=== PATIENT | female | born 1980 | race Caucasian/White ===

== ENCOUNTER → 2018-07-21 13:02 | Outpatient (CLI) | payer BC, SELFPAY ==
--- NOTE | 2018-07-21 13:06 | CT_ITS ---
CT pelvis w con INDICATION: Previous bladder surgery ITS.REASON: history of vaginal tear repair, patient has open wound bikini area of left groin ORDERING PHYSICIAN: Don Rowland MD PATIENT AGE: 37 years COMPARISON: Ct scan abd and pelvis 05-13-2018 TECHNIQUE: Axial images obtained with sagittal and coronal reformats. All CT scans at the facility use one or more dose reduction, viz: automated exposure control, ma/kV adjustment per patient size (including targeted exams where dose is matched to indication, i.e. head), or iterative reconstruction technique. FINDINGS: Scans were obtained from the iliac crest to the bladder floor. Initially scans were performed CT seconds after beginning of IV contrast and then delayed scanning was performed. Oral contrast was given previously area contrast filled loops of mid and distal small bowel appear normal. The initial scan showed the bladder be fairly well filled with urine and appears grossly normal. The second series of scan showed contrast opacifying the urinary bladder with no evidence of leakage or significant bladder contour irregularity. There is noted be large amount stool in the lower descending and sigmoid colon and rectum. The patient is post hysterectomy. There is no free fluid in the pelvis. IMPRESSION: Findings as described, no significant postsurgical change of the urinary bladder, no evidence of vesicovaginal fistula
== END ==
PROVIDERS: PCP Emergency Medicine; Visit Provider Surgery
DX: S31.109A Unspecified open wound of abdominal wall, unspecified quadrant without penetration into peritoneal cavity, initial encounter (principal)
CPT/HCPCS: 72193; Q9967

== ENCOUNTER → 2018-07-28 15:20 | Outpatient (CLI) | payer BC, SELFPAY ==
[2018-07-28 15:46] LABS: Basophils % 0.4 % (0.1-2.0); Eosinophils # 0.2 K/mm3 (0.0-0.4); Eosinophils % 2.6 % (0.1-12.0); Hematocrit 41.9 % (37.0-47.0); Hemoglobin 13.6 g/dL (12.2-16.2); Lymphocytes # 2.4 K/mm3 (0.7-4.5); Lymphocytes % 28.6 % (10-50); Mean Corpuscular HGB Conc 32.4 g/dL (31.8-35.4); Mean Corpuscular Hemoglobin 29.2 pg (27.0-31.2); Mean Corpuscular Volume 90.2 fl (81-99); Mean Platelet Volume 8.2 fl (7.4-10.4); Monocytes # 0.4 K/mm3 (0.1-1.0); Monocytes % 4.5 % (1.7-9.3); Neutrophils # 5.3 K/mm3 (1.8-7.8); Platelet Count 233 K/mm3 (142-424); Red Blood Count 4.65 M/mm3 (4.20-5.40); Red Cell Distribution Width 12.7 % (11.5-17.5); White Blood Count 8.3 K/mm3 (4.8-10.8)
[2018-07-28 16:25] LABS: Anion Gap 15.1 mEq/L (5-15); Blood Urea Nitrogen 7 mg/dL (7-18); Calcium 8.6 mg/dL (8.5-10.1); Carbon Dioxide 25 mmol/L (21.0-32.0); Chloride 105 mmol/L (98-107); Creatinine,Serum 0.71 mg/dL (0.55-1.02); Estimated Glomerular Filt Rate 94 ml/min (>60); GFR (African American) 113 ML/MIN (>60); Glucose 100 mg/dL (74-106); Potassium 4.1 mmoL/L (3.5-5.1); Sodium 141 mmol/L (136-145)
[2018-07-31 10:34] LABS: HIV Screen 4th Generation wRfx Non Reactive (Non Reactive); Rapid Plasma Reagin Ab Titer Non Reactive (NonRea<1:1)
== END ==
PROVIDERS: Obstetrics & Gynecology; PCP Emergency Medicine; Visit Provider Surgery
DX: Z01.818 Encounter for other preprocedural examination (principal); Z11.3 Encounter for screening for infections with a predominantly sexual mode of transmission
CPT/HCPCS: 36415; 80048; 85025; 86592; 86703; G0432